=== PATIENT | male | born 1980 | race Caucasian/White ===

== ENCOUNTER 2018-04-10 16:21 | Inpatient (IN) | payer OTHER, SELFPAY ==
[~2018-04-10 16:21] MED LIST: Dexamethasone 20 MG/5 ML VIAL ONE; Ketorolac Tromethamine 30 MG/ML VIAL ONE; Lidocaine 1% PF 5 ML VIAL ONE; Ondansetron PF 4 MG/2 ML Vial ONE; PROPOFOL 200 MG/20 ML VIAL ONE; Succinylcholine Chloride 20 MG/ML 10 ml SYRINGE FS ONE
[2018-04-10] MEDS ORDERED: cefTRIAXone\\ROCEPHIN 2 GM VIAL ONE (16:30)
[2018-04-10] MEDS ORDERED: Morphine 4 MG/ML VIAL ONE ×2 (16:30→17:00)
[2018-04-10] MEDS ORDERED: Ketorolac Tromethamine 30 MG/ML VIAL ONE ×2 (16:30→21:11)
[2018-04-10] MEDS ORDERED: Adacel (T-DAP) 0.5 ML SYRINGE ONE (16:31)
[2018-04-10] MEDS ORDERED: Lidocaine 1% (PF) 30 ML VIAL ONE (16:31)
[2018-04-10] MEDS ORDERED: Bupivacaine 0.5% 10 ML VIAL ONE (16:35)
[2018-04-10 16:46] LABS: #Basophils 0.1 thou/uL (0.0-0.2); #Eosinphils 0.1 thou/uL (0.0-0.7); #Lymphocytes 3.4 thou/uL (1.20-3.40); #Monocytes 0.9 thou/uL (0.11-0.59); #Neutrophils 6.2 thou/uL (1.40-6.50); %Basophils 0.6 % (0.0-1.0); %Eosinophils 0.7 % (0.0-10.0); %Lymphocytes 31.8 % (21.0-51.0); %Monocytes 8.2 % (0.0-10.0); %Neutrophils 58.7 % (42.0-75.0); Hemoglobin 14.7 g/dL (14.0-18.0); Mean Corpuscular HGB CONC 34.9 g/dL (32.0-36.0); Mean Corpuscular Hemoglobin 31.6 pg (27.0-31.0); Mean Corpuscular Volume 90.6 fL (78.0-98.0); Mean Platelet Volume 7.3 fL (7.4-10.4); Platelet Count 334 thou/uL (130-400); RBC Distribution Width 11.2 % (11.5-14.5); Red Blood Cell (RBC) Count 4.66 mill/uL (4.70-6.10); White Blood Cell (WBC) Count 10.5 thou/uL (4.8-10.8)
[2018-04-10] MEDS ORDERED: Gentamicin 80 MG/2 ML VIAL ONE (16:52)
[2018-04-10] MEDS ORDERED: metroNIDAZOLE 500 MG/100 ML BAG ONE (16:55)
[2018-04-10] MEDS ORDERED: Ondansetron PF 4 MG/2 ML Vial ONE (17:00)
[2018-04-10] MEDS ORDERED: Bacitracin Zinc Ointment 30 gm TUBE ONE (17:04)
[2018-04-10] MEDS ORDERED: Sodium Chloride 0.9% 50 ML ONE ×2 (17:04→17:17)
[2018-04-10] MEDS ORDERED: Thrombin 5000 UNITS/5 ML VIAL ONE (17:04)
[2018-04-10] MEDS ORDERED: Bupivacaine PF 0.5% 30 ML VIAL ONE (17:04)
[2018-04-10 17:06] LABS: ALT (SGPT) 41 U/L (8-55); AST (SGOT) 25 U/L (5-34); Albumin 5.1 g/dL (3.5-5.0); Alkaline Phosphatase 69 U/L (40-150); Anion Gap 19 mmol/L (10-20); BUN (Urea Nitrogen) 18 mg/dL (8.9-20.6); Bilirubin, Total 0.5 mg/dL (0.2-1.2); Calc. Creatinine Clearance 0 mL/min (70-130); Calcium 9.8 mg/dL (7.8-10.44); Carbon Dioxide 19 mmol/L (22-29); Chloride 107 mmol/L (98-107); Estimated GFR-MDRD Greater than 90; Glucose 100 mg/dL (70-105); Protein, Total 8.1 g/dL (6.0-8.3); Sodium 142 mmol/L (136-145)
[2018-04-10] MEDS ORDERED: Fentanyl 100 MCG/2 ML VIAL ONE (17:11)
[2018-04-10 17:18] LABS: Potassium 2.9 mmol/L (3.5-5.1)
[2018-04-10] MEDS ORDERED: Midazolam HCl 2 mg/2 ml Vial ONE (17:24)
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
[2018-04-10] MEDS ORDERED: HYDROmorphone 2 MG/ML VIAL ONE (18:17)
[2018-04-10] MEDS ORDERED: Tobramycin Sulfate 1.2 GM VIAL ONE (18:36)
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
--- NOTE | 2018-04-10 18:51 | RAD ---
LEFT HAND THREE VIEWS: 04/10/18 COMPARISON: None. HISTORY: Injury. FINDINGS: There is partial amputation involving the distal aspect of the index finger. The tip of the second di stal phalanx is absent and the majority of the second distal phalanx is exposed with marked soft tiss ue loss. There is an obliquely oriented fracture involving the base of the second middle phalanx exte nding into the second proximal interphalangeal joint. There appears to be extensive soft tissue injur y involving the palmar aspect of the hand. There is partial amputation of the thumb at the level of t he first interphalangeal joint with a comminuted fracture involving the residual base of the first di stal phalanx. No definite fracture is seen involving the third, fourth, or fifth fingers. Multiple fo ci of subcutaneous gas noted at the base of the index finger and in the palmar aspect of the hand sug gesting extensive laceration. IMPRESSION: Partial amputation of the thumb and index finger as above. Extensive soft tissue injury involving the palmar aspect of the hand and the soft tissues at the base of the first and second fingers with asso ciated subcutaneous gas. Findings suggesting a large palmar laceration. Fracture at base of second mi ddle phalanx extending into the second proximal interphalangeal joint. POS: [facility]
[2018-04-10] MEDS ORDERED: PACU-Morphine 4MG/ML VIAL SLOW IVP PRN (21:10)
[2018-04-10] MEDS ORDERED: HYDROmorphone 2 MG/ML VIAL SLOW IVP PRN (21:10)
[2018-04-10] MEDS ORDERED: Ondansetron HCl/PF 4 MG/2 ML Vial IVP PRN (21:10)
[2018-04-10] MEDS ORDERED: Promethazine HCl 25 MG/ML VIAL SLOW IVP PRN (21:10)
[2018-04-10] MEDS ORDERED: Promethazine HCl 25 MG/ML VIAL IM PRN (21:10)
[2018-04-10] MEDS ORDERED: Cyclobenzaprine 10 MG TAB PO PRN (22:14)
[2018-04-10] MEDS ORDERED: Dextrose 5% in Water 1,000 ML IV PRN (22:14)
[2018-04-10] MEDS ORDERED: traMADol HCl 50 MG TAB PO PRN ×2 (22:14)
[2018-04-10] MEDS ORDERED: Ondansetron ODT 4 MG TAB PO PRN (22:14)
[2018-04-10] MEDS ORDERED: Sodium Chloride 0.9% 1,000 ML IV SCH (22:14)
[2018-04-10] MEDS ORDERED: Acetaminophen 1,000 MG in Premix Bag 1 BAG IVPB SCH (22:14)
[2018-04-10] MEDS ORDERED: Ondansetron PF 4 MG/2 ML Vial IVP PRN (22:14)
[2018-04-10] MEDS ORDERED: Dextrose 50% Abboject 50 ML SYRINGE SLOW IVP PRN (22:14)
[2018-04-10] MEDS ORDERED: hydrALAZINE 20 MG/ML VIAL SLOW IVP PRN (22:14)
[2018-04-10] MEDS ORDERED: Morphine 4 MG/ML VIAL SLOW IVP PRN (22:14)
[2018-04-10 22:24] VITALS: BMI 34.2
[2018-04-10] MEDS ORDERED: Ibuprofen 800 MG TAB PO SCH (22:30)
[2018-04-10] MEDS ORDERED: Famotidine 20 MG TAB PO SCH (22:30)
[2018-04-11] MEDS: Ibuprofen 800 MG TAB PO SCH ×3 (05:45→21:21)
[2018-04-11 06:20] LABS: #Lymphocytes 1.8 thou/uL (1.20-3.40); #Monocytes 0.9 thou/uL (0.11-0.59); #Neutrophils 7.3 thou/uL (1.40-6.50); %Basophils 0.1 % (0.0-1.0); %Eosinophils 0.4 % (0.0-10.0); %Lymphocytes 18.1 % (21.0-51.0); %Monocytes 9.1 % (0.0-10.0); %Neutrophils 72.2 % (42.0-75.0); Hemoglobin 11.9 g/dL (14.0-18.0); Mean Corpuscular HGB CONC 33.8 g/dL (32.0-36.0); Mean Corpuscular Hemoglobin 31.2 pg (27.0-31.0); Mean Corpuscular Volume 92.2 fL (78.0-98.0); Mean Platelet Volume 6.9 fL (7.4-10.4); Platelet Count 227 thou/uL (130-400); RBC Distribution Width 11.3 % (11.5-14.5); White Blood Cell (WBC) Count 10.1 thou/uL (4.8-10.8)
[2018-04-11 06:35] LABS: Anion Gap 10 mmol/L (10-20); BUN (Urea Nitrogen) 12 mg/dL (8.9-20.6); Calc. Creatinine Clearance 245 mL/min (70-130); Calcium 8.5 mg/dL (7.8-10.44); Carbon Dioxide 24 mmol/L (22-29); Chloride 107 mmol/L (98-107); Estimated GFR-MDRD Greater than 90; Glucose 99 mg/dL (70-105); Potassium 3.7 mmol/L (3.5-5.1); Sodium 137 mmol/L (136-145)
[2018-04-11] MEDS: Bacitracin Zinc Ointment 30 gm TUBE TOP SCH (08:57)
[2018-04-11] MEDS: Famotidine 20 MG TAB PO SCH ×2 (08:57→21:21)
[2018-04-11] MEDS ORDERED: Midazolam HCl 2 mg/2 ml Vial ONE (10:40)
[2018-04-11] MEDS ORDERED: Fentanyl 100 MCG/2 ML VIAL ONE ×3 (10:41→17:41)
[2018-04-11] MEDS ORDERED: Ropivacaine HCl/PF 250 ML in Premix Bag 1 BAG NERVE BLCK SCH (11:14)
[2018-04-11] MEDS ORDERED: Zolpidem Tartrate 5 MG TAB PO PRN (11:14)
[2018-04-11] MEDS ORDERED: Ketorolac Tromethamine 30 MG/ML VIAL IVP PRN (11:14)
[2018-04-11] MEDS ORDERED: traMADol HCl 50 MG TAB PO PRN ×2 (11:14)
[2018-04-11] MEDS ORDERED: HYDROcodone/Acetaminophen 5/325 mg Tablet PO PRN ×2 (11:14)
[2018-04-11] MEDS ORDERED: Promethazine HCl 25 MG/ML VIAL IM PRN ×2 (11:14→19:32)
[2018-04-11] MEDS ORDERED: Fentanyl 100 MCG/2 ML VIAL IV PRN (11:17)
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
[2018-04-11] MEDS ORDERED: Ropivacaine 0.2% HCl/PF (40 MG/20 ML VIAL) ONE (15:32)
[2018-04-11] MEDS ORDERED: Ropivacaine 0.5% HCl/PF (150 MG/30 ML VIAL) ONE ×2 (15:32→17:46)
[2018-04-11] MEDS ORDERED: Ondansetron PF 4 MG/2 ML Vial ONE (15:34)
[2018-04-11] MEDS ORDERED: PROPOFOL 200 MG/20 ML VIAL ONE (15:34)
[2018-04-11] MEDS ORDERED: Lidocaine 1% PF 5 ML VIAL ONE (15:34)
[2018-04-11] MEDS ORDERED: Bacitracin Zinc Ointment 30 gm TUBE ONE (17:23)
[2018-04-11] MEDS ORDERED: Tobramycin Sulfate 1.2 GM VIAL ONE (18:30)
[2018-04-11] MEDS ORDERED: Ondansetron HCl/PF 4 MG/2 ML Vial IVP PRN (19:32)
[2018-04-11] MEDS ORDERED: Promethazine HCl 25 MG/ML VIAL SLOW IVP PRN (19:32)
[2018-04-11] MEDS ORDERED: Promethazine HCl 25 MG/ML VIAL ONE (19:48)
[2018-04-11] MEDS: Gentamicin Sulfate 80 MG in Premix Bag 1 BAG IVPB SCH (21:24)
[2018-04-11] MEDS: Penicillin G Potassium 3 MILL.UNITS in Sodium Chloride 0.9% 100 ML IVPB SCH (21:24)
[2018-04-11] MEDS: Clindamycin/D5W 900 MG in Premix Bag 1 BAG IVPB SCH (21:27)
[2018-04-12] MEDS: Penicillin G Potassium 3 MILL.UNITS in Sodium Chloride 0.9% 100 ML IVPB SCH ×5 (00:58→16:55)
[2018-04-12] MEDS: Ibuprofen 800 MG TAB PO SCH ×3 (05:15→22:59)
[2018-04-12] MEDS: Gentamicin Sulfate 80 MG in Premix Bag 1 BAG IVPB SCH ×3 (05:16→21:04)
[2018-04-12] MEDS: Clindamycin/D5W 900 MG in Premix Bag 1 BAG IVPB SCH ×3 (05:16→22:58)
[2018-04-12 06:34] LABS: #Eosinphils 0.1 thou/uL (0.0-0.7); #Lymphocytes 1.1 thou/uL (1.20-3.40); #Monocytes 0.8 thou/uL (0.11-0.59); #Neutrophils 4.6 thou/uL (1.40-6.50); %Basophils 0.1 % (0.0-1.0); %Lymphocytes 16.9 % (21.0-51.0); Hemoglobin 10.6 g/dL (14.0-18.0); Mean Corpuscular Hemoglobin 31.6 pg (27.0-31.0); Mean Corpuscular Volume 93.1 fL (78.0-98.0); Platelet Count 189 thou/uL (130-400); RBC Distribution Width 11.2 % (11.5-14.5); Red Blood Cell (RBC) Count 3.35 mill/uL (4.70-6.10); White Blood Cell (WBC) Count 6.6 thou/uL (4.8-10.8)
[2018-04-12 06:59] LABS: Anion Gap 9 mmol/L (10-20); BUN (Urea Nitrogen) 6 mg/dL (8.9-20.6); Calc. Creatinine Clearance 248 mL/min (70-130); Calcium 8.4 mg/dL (7.8-10.44); Carbon Dioxide 25 mmol/L (22-29); Chloride 110 mmol/L (98-107); Estimated GFR-MDRD Greater than 90; Glucose 118 mg/dL (70-105); Potassium 3.9 mmol/L (3.5-5.1); Sodium 140 mmol/L (136-145)
[2018-04-12] MEDS: Bacitracin Zinc Ointment 30 gm TUBE TOP SCH (09:18)
[2018-04-12] MEDS: Famotidine 20 MG TAB PO SCH ×2 (09:18→21:04)
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
[2018-04-13] MEDS: Gentamicin Sulfate 80 MG in Premix Bag 1 BAG IVPB SCH ×2 (05:18→12:50)
[2018-04-13] MEDS: Ibuprofen 800 MG TAB PO SCH ×3 (06:31→22:48)
[2018-04-13] MEDS: Clindamycin/D5W 900 MG in Premix Bag 1 BAG IVPB SCH ×2 (06:31→14:12)
[2018-04-13] MEDS: Famotidine 20 MG TAB PO SCH ×2 (08:55→22:48)
[2018-04-13] MEDS: Bacitracin Zinc Ointment 30 gm TUBE TOP SCH (09:04)
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
--- NOTE | 2018-04-13 14:26 | OP ---
DATE OF PROCEDURE: 04/11/2018 PREOPERATIVE DIAGNOSES: abscess foreign body 75409 level, small finger debridement 57572 level ring finger debridement 34140 middle finger debridement 47719 . DESCRIPTION OF PROCEDURE: using a combination of tenotomy scissors, Metzenbaum, as listed above. No complications listed above. Antibiotic beads were impregnated with tobramycin powder general LMA technique augmented given him for pain and possible . We then exsanguinated the limb, elevated the tourniquet to index finger, the ulnar index finger base, center of the wound. index finger long finger, ring finger, and small finger contamination area in the palmar base, mid aspect of the listed above, and there was no further adkins . At this point, we irrigated wound edges with some denuded skin once the irrigation was done, we then dried the area, and the antibiotic beads were mixed with tobramycin powder, approximately 3 to 4 mm beads and impact ABD followed by ant, . Job ID: [id number]
[2018-04-13] MEDS ORDERED: Dexamethasone 20 MG/5 ML VIAL ONE (16:51)
[2018-04-13] MEDS ORDERED: Ondansetron PF 4 MG/2 ML Vial ONE (16:51)
[2018-04-13] MEDS ORDERED: PROPOFOL 200 MG/20 ML VIAL ONE (16:51)
[2018-04-13] MEDS ORDERED: Sodium Chloride 0.9% 30 ML ONE (19:30)
[2018-04-13] MEDS ORDERED: Bupivacaine PF 0.5% 30 ML VIAL ONE (19:30)
[2018-04-13] MEDS ORDERED: Bacitracin Zinc Ointment 30 gm TUBE ONE (19:30)
[2018-04-13] MEDS ORDERED: Thrombin 5000 UNITS/5 ML VIAL ONE ×2 (19:30→19:46)
[2018-04-13] MEDS ORDERED: Midazolam HCl 2 mg/2 ml Vial ONE ×2 (19:35→20:13)
[2018-04-13] MEDS ORDERED: Fentanyl 100 MCG/2 ML VIAL ONE (19:35)
[2018-04-13] MEDS ORDERED: Bupivacaine/Epinephrine 0.25% 30 ML VIAL ONE (19:37)
[2018-04-13] MEDS ORDERED: HYDROmorphone 2 MG/ML VIAL ONE (20:38)
[2018-04-14] MEDS: Clindamycin/D5W 900 MG in Premix Bag 1 BAG IVPB SCH ×2 (00:16→08:06)
[2018-04-14] MEDS: Ibuprofen 800 MG TAB PO SCH ×2 (06:34→14:59)
[2018-04-14 06:39] LABS: #Lymphocytes 0.7 thou/uL (1.20-3.40); #Monocytes 0.3 thou/uL (0.11-0.59); #Neutrophils 6.2 thou/uL (1.40-6.50); %Basophils 0.1 % (0.0-1.0); %Eosinophils 0.2 % (0.0-10.0); %Lymphocytes 9.7 % (21.0-51.0); %Monocytes 3.8 % (0.0-10.0); %Neutrophils 86.1 % (42.0-75.0); Mean Corpuscular HGB CONC 32.6 g/dL (32.0-36.0); Mean Corpuscular Hemoglobin 30.7 pg (27.0-31.0); Mean Corpuscular Volume 94.1 fL (78.0-98.0); Mean Platelet Volume 7.6 fL (7.4-10.4); Platelet Count 258 thou/uL (130-400); RBC Distribution Width 10.8 % (11.5-14.5); Red Blood Cell (RBC) Count 3.91 mill/uL (4.70-6.10); White Blood Cell (WBC) Count 7.2 thou/uL (4.8-10.8)
[2018-04-14] MEDS: Famotidine 20 MG TAB PO SCH (08:06)
[2018-04-14] MEDS ORDERED: Gabapentin 300 MG CAP PO SCH ×3 (09:45→15:00)
[2018-04-14] MEDS ORDERED: Sulfameth/Trimethoprim DS 800-160mg TAB PO SCH ×3 (09:58→21:00)
[2018-04-14] MEDS: Acetaminophen 500 MG TAB PO SCH ×2 (11:31→14:59)
[2018-04-14] MEDS: Bacitracin Zinc Ointment 30 gm TUBE TOP SCH (11:59)
[2018-04-14] MEDS ORDERED: Ropivacaine 0.2% 550 ML 550 ML NERVE BLCK SCH (12:12)
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
[2018-04-14 12:52] VITALS: BP 144/74; TEMP 97.9
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
--- NOTE | 2018-04-18 13:04 | EKG ---
Test Reason : Blood Pressure : / mmHG Vent. Rate : 088 BPM Atrial Rate : 088 BPM P-R Int : 148 ms QRS Dur : 108 ms QT Int : 398 ms P-R-T Axes : 068 005 036 degrees QTc Int : 481 ms Sinus rhythm with marked sinus arrhythmia with junctional escape complexes Minimal voltage criteria for LVH, may be normal variant Prolonged QT Abnormal ECG Confirmed by MARTI AYALA ([id number]), photo editor OLGA LIDIA KAUR ([id number]) on 04/18/2018 1:03:56 PM Referred By: Confirmed By:MARTI AYALA
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
--- NOTE | 2018-05-18 15:08 | OP ---
DATE OF PROCEDURE: 04/13/2018 ANESTHESIA: [facility], general LMA technique. PROCEDURE PERFORMED: Open wound, left hand greater than 25 cm. Full-thickness skin loss, 4 cm x 2.5 cm left index finger. Procedure performed at the left thumb: 1. Wound debridement. a. A 6 cm wound closure. 2. At the central palm: 20 cm wound closure. 3. At the left index finger, left index finger cross finger flap received from the middle using advanced techniques, 4.5 x 2.5 cm. 4. Neuroplasty, medial nerve and digital nerves of the second web space. 5. Split-thickness skin graft, 10 cm x 10 cm to the central palm. 6. Removal of antibiotic beads. TOURNIQUET TIME: 25 minute. ESTIMATED BLOOD LOSS: 50 mL. split-thickness skin graft harvested from ipsilateral thigh. FINDINGS: No inflammation to muscle, paratenon over the flexor digitorum superficialis, flexor digitorum profundus, index finger and long finger intact. Actually the size of the graft harvested was 10 x 20 cm, because they had to go not just to the hand, but to the donor finger, left middle finger. INDICATIONS: The patient returned for stage wound management, now his 3rd operation and we felt his wounds were probably stable enough with no signs of infection to proceed with his procedure as listed above. DESCRIPTION OF PROCEDURE: After successful general LMA technique, the limb was prepped and draped. A sterile tourniquet was placed high in the arm. We initially inflated tourniquet. After exsanguination of the limb, I began debridement as listed above. First, the left thumb. We debrided the wound and the techniques involved with use of a [place] blade and an 11 blade knife, tenotomy scissors, Crile, and rongeur for debridement. With excisional technique and the depth was down to including the bone, we did not remove bone, just inspected it. No infection was seen. Once we had done this debridement, we found that the skin level was 2 mm distal to the bone level, so we closed this tip along with a total of 6 cm wound on the thumb with interrupted 4-0 nylon simple pattern. The patient now had debridement, turned to the palmar wound, including the central palm, the palmar 1st webspace, dorsal 1st web space, and the distal portion of the palm, now it was almost a 20 cm wound. For this reason, we knew we would need a large split-thickness skin graft, but once we had finished debridement, placed a bulky dressing here to renew the size of the donor defect on the middle finger to plan our total skin graft requirement. We now inspected the index finger, it was pink, the only area exposed was the entire flexor tendon at the level of the profundus insertion and most of the distal half of the middle finger phalanx, palmar aspect and somewhat ulnar. We then outlined a cross-finger flap, dissected it with a tourniquet, inflated, released the tourniquet to make sure it is large, 4.5 cm long, obliquely oriented towards the defect, 2.5 cm wide flap was viable and had excellent bleeding and covered all edges. We then sutured it to the index finger and there was no further visible defect here. The flap was viable and pink. We had to perform a neuroplasty of the median nerve and the digital nerves in the palm before we prepared the graft to make sure we identified the nerve on both sides of the digital loss , so that later it could be considered for grafting. Once we had done this, the neuroplasty complete and we now measured our skin graft. Deficit to the knee would be approximately 10 cm x 20 cm including the 5 cm x 3 cm portion that would have to be harvested for the donor site. We harvested from the ipsilateral leg after preparing this area and giving an injection of 20 mL of 0.5% Marcaine in a field block of the graft. We used a power [employer] dermatome set at 0.20 thickness, and then I meshed this to 1 to 1.5. Most of it was used to cover the palmar wound where it had to be gently impacted in the area of the defect and made sure alignment of tendons were not disturbed and over the donor site from the middle finger to where the index finger cross-finger flap was now harvested and now placed on the index finger. Once we placed these, we bolstered them appropriately, held them with running (3-0 with) a 4-0 chromic gut suture and made bolsters x2 and held the flap down. Now tourniquet was completely down, we obtained hemostasis at all sites, there was no gross infection or dislodging of the dressing, bolstered them with lisa and applied at all recipient sites and the patient woke up with a digit there was pink. No evidence of infection and we left the operating room without other problems and no anesthetic complications. Job ID: [id number]
== END 2018-04-14 15:08 | disposition home or self-care (01) | DRG 906 ==
LOC: ERS 16:21 → SDC/OP 17:50 → OBSVTOIN 22:19 → SURG B 22:19
PROVIDERS: ADMIT Orthopaedic Surgery Hand Surgery; ATTEND Orthopaedic Surgery Hand Surgery
PROC: 0PBV0ZZ Excision of Left Finger Phalanx, Open Approach (ICD-10-PCS; principal; 2018-04-10)
PROC: 0LU807Z Supplement Left Hand Tendon with Autologous Tissue Substitute, Open Approach (ICD-10-PCS; 2018-04-10)
PROC: 01Q60ZZ Repair Radial Nerve, Open Approach (ICD-10-PCS; 2018-04-10)
PROC: 01Q40ZZ Repair Ulnar Nerve, Open Approach (ICD-10-PCS; 2018-04-10)
PROC: 01N50ZZ Release Median Nerve, Open Approach (ICD-10-PCS; 2018-04-10)
PROC: 0PSV04Z Reposition Left Finger Phalanx with Internal Fixation Device, Open Approach (ICD-10-PCS; 2018-04-10)
PROC: 0JCK0ZZ Extirpation of Matter from Left Hand Subcutaneous Tissue and Fascia, Open Approach (ICD-10-PCS; 2018-04-10)
PROC: 0PBV0ZZ Excision of Left Finger Phalanx, Open Approach (ICD-10-PCS; 2018-04-11)
PROC: 0JBK0ZZ Excision of Left Hand Subcutaneous Tissue and Fascia, Open Approach (ICD-10-PCS; 2018-04-11)
PROC: 0JC50ZZ Extirpation of Matter from Left Neck Subcutaneous Tissue and Fascia, Open Approach (ICD-10-PCS; 2018-04-11)
PROC: 3E0102A Introduction of Anti-Infective Envelope into Subcutaneous Tissue, Open Approach (ICD-10-PCS; 2018-04-11)
PROC: 0KBD0ZZ Excision of Left Hand Muscle, Open Approach (ICD-10-PCS; 2018-04-13)
PROC: 0HRGX74 Replacement of Left Hand Skin with Autologous Tissue Substitute, Partial Thickness, External Approach (ICD-10-PCS; 2018-04-13)
PROC: 01Q50ZZ Repair Median Nerve, Open Approach (ICD-10-PCS; 2018-04-13)
PROC: 0HBJXZZ Excision of Left Upper Leg Skin, External Approach (ICD-10-PCS; 2018-04-13)
DX: S68.121A Partial traumatic metacarpophalangeal amputation of left index finger, initial encounter (principal); S21.119A Laceration without foreign body of unspecified front wall of thorax without penetration into thoracic cavity, initial encounter; L02.11 Cutaneous abscess of neck; S68.022A Partial traumatic metacarpophalangeal amputation of left thumb, initial encounter; Y92.9 Unspecified place or not applicable; S01.81XA Laceration without foreign body of other part of head, initial encounter; W39.XXXA Discharge of firework, initial encounter; S11.92XA Laceration with foreign body of unspecified part of neck, initial encounter
CPT/HCPCS: 36415; 64450; 70360; 71045; 80048; 80053; 85025; 86850; 86900; 86901; 87070; 87205; 90471; 90715; 93005; 96365; 96367; 96375; 99292; A4306; C1713; J0131; J0696; J1100; J1170; J1580; J1885; J2001; J2250; J2270; J2405; J2540; J2550; J2704; J2795; J3010; J3260; J3370; J3490; J7050; S0020

== ENCOUNTER 2018-05-12 10:51 | Day surgery (SDC) | payer OTHER, SELFPAY ==
[2018-05-11 12:57] VITALS: BMI 29.7
[~2018-05-12 10:51] MED LIST changes: -Dexamethasone 20 MG/5 ML VIAL ONE; -Ketorolac Tromethamine 30 MG/ML VIAL ONE; -Ondansetron PF 4 MG/2 ML Vial ONE; -Succinylcholine Chloride 20 MG/ML 10 ml SYRINGE FS ONE
[2018-05-12] MEDS ORDERED: Bupivacaine PF 0.5% 30 ML VIAL ONE (14:01)
[2018-05-12] MEDS ORDERED: Lidocaine 1% (PF) 30 ML VIAL ONE (14:01)
[2018-05-12] MEDS ORDERED: Bacitracin Zinc Ointment 30 gm TUBE ONE (14:01)
[2018-05-12] MEDS ORDERED: Sodium Chloride 0.9% 10 ML ONE (14:02)
[2018-05-12] MEDS ORDERED: Fentanyl 250 MCG/5 ML VIAL ONE (14:07)
[2018-05-12] MEDS ORDERED: Lidocaine 2% 11 ML SYR ONE (14:08)
[2018-05-12] MEDS ORDERED: CEFAZOLIN 2 GM/50 ML BAG ONE (14:24)
[2018-05-12] MEDS ORDERED: Ketorolac Tromethamine 30 MG/ML VIAL ONE ×2 (17:46→18:37)
--- NOTE | 2018-05-13 08:31 | OP ---
DATE OF PROCEDURE: 05/12/2018 PREOPERATIVE DIAGNOSES: 1. Right hand multiple wounds. 2. Cross-finger flap, still attached index finger from the long finger at the distal aspect tip to cover complete loss down the bone and tendon. FINDINGS: 1. Cross-finger flap, very viable even when . 2. Shortage of skin on both the donor and recipient sites of approximately 2 cm long x 8 tenths of a cm wide requiring full-thickness skin grafting. PROCEDURE PERFORMED: 1. Debridement of hand wound, superficial. 2. Debridement of finger wound, superficial. 3. Separation of cross-finger flap. 4. Full-thickness skin graft, from antecubital, total of 5 cm x 2 cm, divided equally between the left index finger, ulna and the left middle finger radial skin areas. DESCRIPTION OF PROCEDURE: After successful general LMA technique, the limb was prepped and draped. No tourniquet applied, but the drapes were placed high in the arm, because sometimes when a cross-finger flap is there is none of skin. We then proceeded to inspect all these wounds, and at the same time we removed all his sutures and lisa. He had asked for a count, so they were counted. The patient then had the wounds debrided. Superficially, I removed the lisa of any denuded skin, there was a thin film of darkened skin indicative of a large amount of edema around all digits especially dorsally on the index and middle finger. After we had done this, we then slowly the cross-finger flap taking care to try to leave as much as skin on the recipient site as possible. Even with this after closing what we could, there was still almost 2 cm long x 5 mm wide area of full-thickness skin missing. A similar sized lesion was seen on the contralateral radial side of the middle finger, so for this reason, after we finished our debridements, it then required us to harvest a full-thickness skin graft from the antecubital fossa, the length was 5 cm and maximum width 1 to 1.5 cm and oval shaped. I then closed primarily after hemostasis was obtained with a running 3-0 Monocryl and a 3-0 nylon interrupted simple pattern stitch. The graft was de-fatted, and then placed on the appropriate sites of the second web space using a 3-0 nylon for bolster and then a running 5-0 chromic gut suture. After this, the index finger and long finger had good circulation to include the flap even with a bolster tie. The bolster consisted of bacitracin and Adpatic and half of a cotton ball soaked in mineral oil. We then placed Bacitracin dressings on all wounds except for the recipient sites, which we covered with a loosely approximated finger tube gauze to allow the index and long finger to be free. The patient left the operating room without evidence of anesthetic or operative complication. Job ID: [id number]
== END 2018-05-12 19:05 | disposition home or self-care (01) ==
LOC: SDC 10:51
PROVIDERS: ATTEND Orthopaedic Surgery Hand Surgery
PROC: 0HBFXZZ Excision of Right Hand Skin, External Approach (ICD-10-PCS; principal; 2018-05-12)
PROC: 0HRFX73 Replacement of Right Hand Skin with Autologous Tissue Substitute, Full Thickness, External Approach (ICD-10-PCS; principal; 2018-05-12)
DX: S61.401A Unspecified open wound of right hand, initial encounter (principal); W39.XXXA Discharge of firework, initial encounter; Z79.1 Long term (current) use of non-steroidal anti-inflammatories (NSAID)
CPT/HCPCS: J1885; J2001; J3010; J3490; S0020